=== PATIENT | male | born 1990 | race Caucasian/White ===

== ENCOUNTER 2021-08-11 19:04 | Emergency (ER) | payer OTHER, SELFPAY ==
[2021-08-11 19:11] VITALS: BP 164/99; PULSE 87; RESP 18; TEMP 36.1; O2SAT 98
[2021-08-11 19:42] LABS: COVID19 -Nasal RAPID Negative (Negative)
--- NOTE | 2021-08-11 21:10 | PC.NURSE ---
patient called to come back to a room at 21:10 with no answer.
== END 2021-08-11 21:10 | disposition left against medical advice (07) ==
PROVIDERS: Emergency Provider Emergency Medicine
DX: Z20.822 Contact with and (suspected) exposure to COVID-19 (principal)
CPT/HCPCS: 87635; 99281; C9803